=== PATIENT | female | born 1940 | race Caucasian/White ===

== ENCOUNTER → 2018-01-24 | Outpatient (CLI) | payer OTHER ==
[2018-01-24 10:29] LABS: CREATININE 1.2 mg/dL (0.6-1.0)
== END ==
LOC: CAT 06:13
PROVIDERS: Specialist
DX: K50.90 Crohn's disease, unspecified, without complications (principal); D17.71 Benign lipomatous neoplasm of kidney; K44.9 Diaphragmatic hernia without obstruction or gangrene